=== PATIENT | female | born 1955 | race Caucasian/White ===

== ENCOUNTER 2022-02-11 04:10 | Emergency (ER) | payer MEDICARE ==
[2022-02-11 04:21] VITALS: TEMP 98.3
--- NOTE | 2022-02-11 04:30 | ED ---
URI HPI - General Chief Complaint: Upper Respiratory Infection Stated Complaint: Lost Voice, cough, sore throat Time Seen by Provider: 02/11/22 04:27 Source: patient, RN notes reviewed, old records reviewed Mode of arrival: ambulatory Limitations: no limitations - History of Present Illness Initial Comments: This is a 67-year-old female to the emergency department for evaluation of sore throat. 3-4 days of worsening sore throat cough congestion which is extended into difficulty with speech. Patient feels like her voice is significantly more hoarse than normal. Little bit of pain with swallowing no difficulty breathing. No fevers, no cough congestion or shortness of breath. No travel history sick contacts. States she does have history of laryngitis this feels similar to prior episodes MD Complaint: cough, sore throat -: days(s) Severity: moderate Severity scale (1-10): 4 Consistency: constant Improves With: nothing Worsens With: nothing Context: sick contacts Associated Symptoms: sore throat Treatments Prior to Arrival: none - Related Data Home Medications Medication Instructions Recorded Confirmed Cetirizine HCl [Zyrtec] 10 mg PO DAILY 03/17/14 03/17/14 Previous Rx's Medication Instructions Recorded Albuterol Sulfate [Ventolin HFA] 2 puff INHALATION Q4H PRN #1 03/17/14 inhaler Amoxicillin/Potassium Clav 1 each PO Q12HR #20 tab 03/17/14 [Augmentin 875-125 Tablet] predniSONE [Deltasone] 20 mg PO BID #8 tab 03/17/14 Amoxic-Pot Clav 875-125Mg 1 tab PO Q12HR #20 tablet 02/11/22 [Augmentin 875-125] Allergies Allergy/AdvReac Type Severity Reaction Status Date / Time No Known Allergies Allergy Verified 02/11/22 04:17 Review of Systems ROS Statement: Those systems with pertinent positive or pertinent negative responses have been documented in the HPI. ROS Other: All systems not noted in ROS Statement are negative. Past Medical History Past Medical History: Asthma Additional Past Medical History / Comment(s): vertigo History of Any Multi-Drug Resistant Organisms: None Reported Past Surgical History: Tubal Ligation Past Psychological History: No Psychological Hx Reported Smoking Status: Former smoker Past Alcohol Use History: None Reported Past Drug Use History: None Reported General Exam Limitations: no limitations General appearance: alert, in no apparent distress Head exam: Present: atraumatic, normocephalic, normal inspection Eye exam: Present: normal appearance, PERRL, EOMI. Absent: scleral icterus, conjunctival injection, periorbital swelling ENT exam: Present: normal exam, mucous membranes moist Neck exam: Present: normal inspection. Absent: tenderness, meningismus, lymphadenopathy Respiratory exam: Present: normal lung sounds bilaterally. Absent: respiratory distress, wheezes, rales, rhonchi, stridor Cardiovascular Exam: Present: regular rate, normal rhythm, normal heart sounds. Absent: systolic murmur, diastolic murmur, rubs, gallop, clicks GI/Abdominal exam: Present: soft, normal bowel sounds. Absent: distended, tenderness, guarding, rebound, rigid Extremities exam: Present: normal inspection, full ROM, normal capillary refill. Absent: tenderness, pedal edema, joint swelling, calf tenderness Back exam: Present: normal inspection Neurological exam: Present: alert, oriented X3, CN II-XII intact Psychiatric exam: Present: normal affect, normal mood Skin exam: Present: warm, dry, intact, normal color. Absent: rash Course Vital Signs 02/11/22 02/11/22 04:17 06:52 Temperature 98.3 F Pulse Rate 69 70 Respiratory 16 15 Rate Blood Pressure 150/83 139/77 O2 Sat by Pulse 95 99 Oximetry - Reevaluation(s) Reevaluation #1: 02/11/22 Medical records reviewed Reevaluation #2: 02/11/22 Patient informed results and questions have been answered Reevaluation #3: 02/11/22 Patient does have improvement of symptoms here in the ER Medical Decision Making - Medical Decision Making 67 year-old female with sore throat, helped her voice, she is negative for COronavirus. Patient does have symptoms of laryngitis, patient given antibiotics and can be discharged home - Lab Data Lab Results 02/11/22 Range/Units 04:34 Coronavirus (PCR) Not Detected (Not Detectd) Disposition Clinical Impression: Laryngitis Disposition: HOME SELF-CARE Condition: Good Instructions (If sedation given, give patient instructions): Pharyngitis (ED), Croup (ED) Prescriptions: Amoxic-Pot Clav 875-125Mg [Augmentin 875-125] 1 tab PO Q12HR #20 tablet Is patient prescribed a controlled substance at d/c from ED?: No Referrals: Reed Wade MD [Primary Care Provider] - 1-2 days Time of Disposition: 06:10
[2022-02-11] MEDS ORDERED: DEXAMETHASONE SOD PHOSPHATE 10 MG/ML 1 ML VIAL IM STA (05:58)
[2022-02-11] MEDS ORDERED: IBUPROFEN 800 MG TAB PO STA (05:58)
[2022-02-11] MEDS ORDERED: AMOXIC-POT CLAV 875-125MG 1 EACH TAB PO STA (05:58)
[2022-02-11 06:53] VITALS: BP 139/77; PULSE 70; RESP 15
== END 2022-02-11 06:53 | disposition home or self-care (01) ==
LOC: EC 04:10
DX: J04.0 Acute laryngitis (principal); J45.909 Unspecified asthma, uncomplicated; Z87.891 Personal history of nicotine dependence; Z79.51 Long term (current) use of inhaled steroids; Z20.822 Contact with and (suspected) exposure to COVID-19
CPT/HCPCS: 87635; 99283; 96372; J1100

== ENCOUNTER 2023-09-27 10:24 | Emergency (ER) | payer MEDICARE ==
[2023-09-27 10:34] VITALS: TEMP 97.8
--- NOTE | 2023-09-27 11:15 | ED ---
Dizziness HPI - General Chief Complaint: Dizziness Stated Complaint: Dizziness Time Seen by Provider: 09/27/23 11:13 Source: patient, RN notes reviewed Mode of arrival: wheelchair Limitations: no limitations - History of Present Illness Initial Comments: Quick [id number] female with history of vertigo presenting with dizziness x 1 week. States this began when she was getting her hair done last week and she was sitting in a chair with her neck fully extended well they were washing out the dye. States when she sat up she felt like her equilibrium was off and has been experiencing episodes of "room spinning" since then. States this feels similar to previous vertigo. Denies loss of consciousness, nausea, vomiting, headache, numbness, weakness, tingling, fever, chest pain, shortness of breath. - Related Data Home Medications Medication Instructions Recorded Confirmed Cetirizine HCl [Zyrtec] 10 mg PO DAILY 03/17/14 03/17/14 Previous Rx's Medication Instructions Recorded Albuterol Sulfate [Ventolin HFA] 2 puff INHALATION Q4H PRN #1 03/17/14 inhaler Amoxicillin/Potassium Clav 1 each PO Q12HR #20 tab 03/17/14 [Augmentin 875-125 Tablet] predniSONE [Deltasone] 20 mg PO BID #8 tab 03/17/14 Amoxic-Pot Clav 875-125Mg 1 tab PO Q12HR #20 tablet 02/11/22 [Augmentin 875-125] Meclizine [Antivert] 25 mg PO TID 14 Days #42 tab 09/27/23 Allergies Allergy/AdvReac Type Severity Reaction Status Date / Time No Known Allergies Allergy Verified 09/27/23 10:34 Review of Systems ROS Statement: Those systems with pertinent positive or pertinent negative responses have been documented in the HPI. ROS Other: All systems not noted in ROS Statement are negative. Past Medical History Past Medical History: Asthma Additional Past Medical History / Comment(s): vertigo History of Any Multi-Drug Resistant Organisms: None Reported Past Surgical History: Tubal Ligation Past Psychological History: No Psychological Hx Reported Smoking Status: Former smoker Past Alcohol Use History: None Reported Past Drug Use History: None Reported General Exam - General Exam Comments Initial Comments: Visual Physical Exam Vital signs reviewed General: Well-appearing, nontoxic, no acute distress. Head: Normocephalic, atraumatic Eyes: PERRLA, EOMI ENT: Airway patent Chest: Nonlabored breathing Skin: No visual rash, normal skin tone Neuro: Alert and oriented 3 Musculoskeletal: No gross abnormalities Limitations: no limitations Course Vital Signs 09/27/23 09/27/23 09/27/23 10:29 14:42 16:55 Temperature 97.8 F Pulse Rate 62 69 85 Respiratory 16 18 18 Rate Blood Pressure 148/84 154/85 134/78 O2 Sat by Pulse 96 97 95 Oximetry Medical Decision Making - Medical Decision Making I completed the quick note portion of this chart signed Chanel Castillo PA-C Was pt. sent in by a medical professional or institution (, [facility], REMOTE SENSING SPECIALIST, urgent c are, hospital, or skilled nursing...) When possible be specific @ -No Did you speak to anyone other than the patient for history (EMS, parent, family, police, friend...)? What history was obtained from this source @ -No Did you review nursing and triage notes (agree or disagree)? Why? @ -I reviewed and agree with nursing and triage notes Were old charts reviewed (outside hosp., previous admission, EMS record, old EKG, old radiological studies, urgent care reports/EKG's, skilled nursing records)? Report findings @ -No old charts were reviewed Differential Diagnosis (chest pain, altered mental status, abdominal pain women, abdominal pain men, vaginal bleeding, weakness, fever, dyspnea, syncope, h eadache, dizziness, GI bleed, back pain, seizure, CVA, palpatations, mental health, musculoskeletal)? @ -Differential Dizziness: Benign paroxysmal positional Vertigo, Menieres disease, otitis media, acoustic neuroma, vertebrobasilar insufficiency, cerebellar stroke, encephalitis, hypovolemic, arrhythmia, coronary artery syndrome, anemia, this is not meant to be an all-inclusive list EKG interpreted by me (3pts min.). @ -None X-rays interpreted by me (1pt min.). @ -None done CT interpreted by me (1pt min.). @ -None done U/S interpreted by me (1pt. min.). @ -None done What testing was considered but not performed or refused? (CT, X-rays, U/S, labs)? Why? @ -CT of head not performed due to this is not patient's first episode of vertigo What meds were considered but not given or refused? Why? @ -None Did you discuss the management of the patient with other professionals (professionals i.e. Dr., PA, REMOTE SENSING SPECIALIST, lab, RT, psych nurse, oncology social worker, archives technician, teacher, customer service security officer, logistics center manager)? Give summary @ -No Was smoking cessation discussed for >3mins.? @ -No Was critical care preformed (if so, how long)? @ -No Were there social determinants of health that impacted care today? How? (Home lessness, low income, unemployed, alcoholism, drug addiction, transportation, low edu. Level, literacy, decrease access to med. care, [facility], rehab)? @ -No Was there de-escalation of care discussed even if they declined (Discuss DNR or withdrawal of care, Hospice)? DNR status @ -No What co-morbidities impacted this encounter? (DM, HTN, Smoking, COPD, CAD, Cancer, CVA, ARF, Chemo, Hep., AIDS, mental health diagnosis, sleep apnea, morbid obesity)? @ -None Was patient admitted / discharged? Hospital course, mention meds given and route, prescriptions, significant lab abnormalities, going to OR and other pertinent info. @ -Patient was discharged. Patient was seen and evaluated for dizziness x 2 w eeks. Patient has history of vertigo and states this feels similar. Patient's vitals are stable and neuro examination is unremarkable. TMs are normal bilaterally. Basic lab work including CBC and CMP were unremarkable. CT not indicated at this time due to patient has had previous episodes of vertigo. Patient was given meclizine and reported an improvement in symptoms. Discussed diagnosis of vertigo with patient. There are no red flag symptoms at this time. Supportive care discussed. Prescribed meclizine to pharmacy. Strict return/alarm symptoms discussed with patient in detail and she shows understanding and agrees to plan. Advised to follow-up with PCP in 1 to 3 days for reevaluation. Case discussed with my attending Dr. Kelley. Patient discharged in stable condition. Undiagnosed new problem with uncertain prognosis? @ -No Drug Therapy requiring intensive monitoring for toxicity (Heparin, Nitro, Insulin, Cardizem)? @ -No Were any procedures done? @ -No Diagnosis/symptom? @ -Vertigo Acute, or Chronic, or Acute on Chronic? @ -Acute Uncomplicated (without systemic symptoms) or Complicated (systemic symptoms)? @ -Uncomplicated Side effects of treatment? @ -No Exacerbation, Progression, or Severe Exacerbation? @ -No Poses a threat to life or bodily function? How? (Chest pain, [place], [place], pneumonia, PE, COPD, DKA, ARF, appy, cholecystitis, CVA, Diverticulitis, Homicidal, Suicidal, threat to staff... and all critical care pts) @ -Low likelihood - Lab Data Result diagrams: 09/27/23 11:43 09/27/23 11:43 Lab Results 09/27/23 09/27/23 Range/Units 11:43 11:43 WBC 6.3 (3.8-10.6) k/uL RBC 5.38 (3.80-5.40) m/uL Hgb 14.8 (11.4-16.0) gm/dL Hct 46.2 H (34.0-46.0) % MCV 85.8 (80.0-100.0) fL MCH 27.4 (25.0-35.0) pg MCHC 31.9 (31.0-37.0) g/dL RDW 13.0 (11.5-15.5) % Plt Count 197 (150-450) k/uL MPV 9.4 Neutrophils % 59 % Lymphocytes % 29 % Monocytes % 9 % Eosinophils % 1 % Basophils % 1 % Neutrophils # 3.7 (1.3-7.7) k/uL Lymphocytes # 1.8 (1.0-4.8) k/uL Monocytes # 0.6 (0-1.0) k/uL Eosinophils # 0.1 (0-0.7) k/uL Basophils # 0.1 (0-0.2) k/uL Sodium 138 (137-145) mmol/L Potassium 4.5 (3.5-5.1) mmol/L Chloride 106 (98-107) mmol/L Carbon Dioxide 28 (22-30) mmol/L Anion Gap 4 mmol/L BUN 18 H (7-17) mg/dL Creatinine 0.79 (0.52-1.04) mg/dL Est GFR (CKD-EPI)AfAm 89 (>60 ml/min/1.73 sqM) Est GFR (CKD-EPI)NonAf 77 (>60 ml/min/1.73 sqM) Glucose 102 H (74-99) mg/dL Calcium 9.4 (8.4-10.2) mg/dL Total Bilirubin 1.5 H (0.2-1.3) mg/dL AST 38 H (14-36) U/L ALT 41 H (4-34) U/L Alkaline Phosphatase 102 (38-126) U/L Total Protein 7.2 (6.3-8.2) g/dL Albumin 4.3 (3.5-5.0) g/dL Disposition Clinical Impression: Vertigo Disposition: HOME SELF-CARE Condition: Stable Instructions (If sedation given, give patient instructions): Vertigo (ED) Additional Instructions: Take meclizine as prescribed. Follow-up with PCP. [facility] return [facility] Department if symptoms worsen or any other concerns. Prescriptions: Meclizine [Antivert] 25 mg PO TID 14 Days #42 tab Is patient prescribed a controlled substance at d/c from ED?: No Referrals: None,Stated [Primary Care Provider] - 1-2 days Time of Disposition: 16:28
[2023-09-27 12:10] LABS: Basophils # (A) 0.1 k/uL (0-0.2); Basophils % (A) 1 %; Eosinophils # (A) 0.1 k/uL (0-0.7); Eosinophils % (A) 1 %; HCT 46.2 % (34.0-46.0); HGB 14.8 gm/dL (11.4-16.0); Lymphocytes # (A) 1.8 k/uL (1.0-4.8); Lymphocytes % (A) 29 %; MCH 27.4 pg (25.0-35.0); MCHC 31.9 g/dL (31.0-37.0); MCV 85.8 fL (80.0-100.0); Mean Platelet Volume 9.4; Monocytes # (A) 0.6 k/uL (0-1.0); Monocytes % (A) 9 %; Neutrophils # (A) 3.7 k/uL (1.3-7.7); Neutrophils % (A) 59 %; Platelet Count 197 k/uL (150-450); RBC 5.38 m/uL (3.80-5.40); WBC 6.3 k/uL (3.8-10.6)
[2023-09-27 12:20] LABS: ALT 41 U/L (4-34); AST 38 U/L (14-36); African American GFR (CKD) 89 (>60 ml/min/1.73 sqM); Albumin 4.3 g/dL (3.5-5.0); Alkaline Phosphatase 102 U/L (38-126); Anion Gap 4 mmol/L; Blood Urea Nitrogen 18 mg/dL (7-17); Calcium 9.4 mg/dL (8.4-10.2); Carbon Dioxide 28 mmol/L (22-30); Chloride 106 mmol/L (98-107); Glucose 102 mg/dL (74-99); Non-African American GFR(CKD) 77 (>60 ml/min/1.73 sqM); Potassium 4.5 mmol/L (3.5-5.1); Sodium 138 mmol/L (137-145); Total Bilirubin 1.5 mg/dL (0.2-1.3); Total Protein 7.2 g/dL (6.3-8.2)
[2023-09-27 14:48] VITALS: RESP 18
[2023-09-27] MEDS: MECLIZINE 12.5 MG TAB PO STA (15:25)
[2023-09-27 17:00] VITALS: BP 134/78; PULSE 85
== END 2023-09-27 16:55 | disposition home or self-care (01) ==
LOC: EC 10:24
DX: R42 Dizziness and giddiness (principal); Z87.891 Personal history of nicotine dependence
CPT/HCPCS: 36415; 80053; 85025; 99284